=== PATIENT | male | born 1970 | race Caucasian/White ===

== ENCOUNTER 2016-07-11 04:38 | Emergency (ER) | payer BC ==
[~2016-07-11] VITALS: Ht 185.4 cm; Wt 85.7 kg
[2016-07-11] MEDS ORDERED: FLEXERIL10 MG PO (05:02)
[2016-07-11] MEDS ORDERED: VALIUM5 MG PO (05:21)
[2016-07-11] MEDS ORDERED: MEDROL DOSEPAK4 MG PO (05:21)
[2016-07-11 05:35] VITALS: BP 123/68
== END 2016-07-11 05:35 | disposition home or self-care (01) ==
LOC: EME 04:38
DX: M25.512 Pain in left shoulder (principal); M54.12 Radiculopathy, cervical region
CPT/HCPCS: 99281; 99284; J7512